=== PATIENT | male | born 1965 | race Caucasian/White ===

== ENCOUNTER 2017-08-11 07:59 | Day surgery (SDC) | payer OTHER ==
--- NOTE | 2017-08-10 11:51 | History and Physical ---
History & Physical Date Aug 10, 2017. Chief Complaint left knee pain History of Present Illness The patient is a 51 year old male with complaints of left knee pain that was treated conservatively with PT, bracing, corticosteroid injections, and viscosupplement injections but failed conservative tx. He had an MRI that noted a medial meniscal tear. He is now being set up for surgical tx. Past Medical/Surgical History Medical Problems: (1) Asthma, Unspecified (2) Benign hypertension (3) Chest pain (4) Diab Sonya Wo Compl, Type Ii Or Unspec Type, Not Uncntrld Allergies Coded Allergies: Dust (Verified Allergy, Mild, ASTHMA TYPE REACTION, 09/05/15) Shellfish (Verified Allergy, Mild, UNK, 09/05/15) Home Medications Scheduled Aspirin (Aspirin EC Low Dose), 81 MG PO DAILY Cyanocobalamin (Cyanocobalamin), 1 DOSE INJ MONTHLY Fluticasone Prop/Salmeterol (Advair Diskus 250/50 60 Dose), 1 PUFF INH BID Lisinopril (Zestril), 5 MG PO DAILY Multivitamin (Multivitamin), 1 TAB PO DAILY Scheduled PRN Fluticasone Propionate (Inhala (Flovent Diskus), 1 PUFFS INH BID PRN for Wheezing Physical Examination Skin: warm/dry, no rash Eyes: normal inspection ENT: normal ENT inspection Head: normocephalic, atraumatic Neck: supple, no adenopathy, trachea midline Respiratory/Chest: lungs clear, normal breath sounds, no respiratory distress Cardiovascular: regular rate, rhythm, no murmur Abdomen / GI: normal bowel sounds, non tender Extremities: + pertinent finding (left knee: tender at the medial and lateral joint spaces, + effusion, painful PROM, + Hu's, Decrease ROM and strength secondary to pain.) Neurologic/Psych: no motor/sensory deficits, alert, oriented x 3 Diagnosis left knee medial meniscus tear left knee DJD Plan of Treatment Recommend a left knee scope with partial medial meniscectomy. All potential risks, benefits, complications, alternatives, and rehab have been discussed with the patient and he wishes to proceed. He will be scheduled for 08.11.17.
[2017-08-10 12:18] VITALS: BMI 38.0
--- NOTE | 2017-08-10 12:44 | PAT Medication Instructions ---
Service Date Aug 10, 2017. Current Home Medication List Albuterol Hfa (Ventolin Hfa), 2-4 PUFFS INH Q6H PRN for Shortness of Breath Calcium/Vitamin D (Os-Sanket 500 Plus D), 1 TAB PO QAM Cyanocobalamin (Cyanocobalamin), 1 DOSE INJ MONTHLY Ergocalciferol (Vitamin D 94856 Unit), 50,000 UNIT PO MONDAY Fluticasone Prop/Salmeterol (Advair Diskus 250/50 60 Dose), 1 PUFF INH BID Fluticasone Propionate (Nasal) (Flonase Allergy Relief), 1 SPRAY NA DAILY PRN for Seasonal Allergies Lisinopril (Prinivil), 10 MG PO QPM Oxycodone/Acetaminophen 5MG/325MG (Percocet 5MG/325MG), 1-2 TABLETS PO Q4H PRN for Pain Pediatric Multiple Vitamins W/ (Flintstones Plus Iron), 2 TAB PO QAM Medication Instructions For Your Scheduled Surgery - Hold the following medications the morning of surgery: Calcium/Vitamin D (Os-Sanket 500 Plus D), 1 TAB PO QAM Pediatric Multiple Vitamins W/ (Flintstones Plus Iron), 2 TAB PO QAM - Take the following medications the morning of surgery with a sip of water OTHERWISE NOTHING TO EAT OR DRINK AFTER MIDNIGHT: Fluticasone Prop/Salmeterol (Advair Diskus 250/50 60 Dose), 1 PUFF INH BID Albuterol Hfa (Ventolin Hfa), 2-4 PUFFS INH Q6H PRN for Shortness of Breath ( use if needed; BRING TO HOSPITAL) Fluticasone Propionate (Nasal) (Flonase Allergy Relief), 1 SPRAY NA DAILY PRN for Seasonal Allergies Oxycodone/Acetaminophen 5MG/325MG (Percocet 5MG/325MG), 1-2 TABLETS PO Q4H PRN for Pain (may take if needed up to 4 hours prior to surgery) - Take the following medications as scheduled the night before surgery: Fluticasone Prop/Salmeterol (Advair Diskus 250/50 60 Dose), 1 PUFF INH BID Albuterol Hfa (Ventolin Hfa), 2-4 PUFFS INH Q6H PRN for Shortness of Breath Fluticasone Propionate (Nasal) (Flonase Allergy Relief), 1 SPRAY NA DAILY PRN for Seasonal Allergies Oxycodone/Acetaminophen 5MG/325MG (Percocet 5MG/325MG), 1-2 TABLETS PO Q4H PRN for Pain - Do Not take the following medications the night before surgery: Lisinopril (Prinivil), 10 MG PO QPM If you have any questions please call us at [phone] or [phone] or [phone]
[2017-08-10 13:22] LABS: BASO % 0.6 %; BASO ABS # 0.03 K/uL (0-0.2); EOS % 2.1 %; EOS ABS # 0.11 K/uL (0-0.5); HEMATOCRIT 41.3 % (42-52); HEMOGLOBIN 13.7 g/dL (14.0-18.0); IG# 0.01 K/uL (0.00-0.02); LYMPH % 38.3 %; LYMPH ABS # 2.04 K/uL (1.2-3.4); MEAN CELL VOLUME 97.6 fL (80-100); MEAN CORPUSCULAR HEMOGLOBIN 32.4 pg (25-34); MEAN CORPUSCULAR HGB CONC 33.2 g/dl (32-36); MEAN PLATELET VOLUME 9.7 fL (7.4-10.4); MONO ABS # 0.53 K/uL (0.11-0.59); NEUT % 48.8 %; PLATELET COUNT 265 K/uL (130-400); RED CELL DISTRIBUTION WIDTH CV 13.5 % (11.5-14.5); RED CELL DISTRIBUTION WIDTH SD 48.1 fL (36.4-46.3); WHITE BLOOD COUNT 5.32 K/uL (4.8-10.8)
--- NOTE | 2017-08-10 13:25 | DIAGNOSTIC IMAGING REPORT ---
TWO VIEW CHEST CLINICAL HISTORY: Preoperative examination. FINDINGS: PA and lateral chest radiographs are compared to study dated 07/30/2016 and correlated with chest CT dated 04/19/2014. The cardiomediastinal silhouette is unremarkable. Chronic interstitial thickening is unchanged from previous. The lungs and pleural spaces are clear. There is no pneumothorax. The bony thorax appears intact. Degenerative change is seen throughout the thoracic spine. IMPRESSION: No active disease in the chest. Electronically signed by: Fermin Schroeder M.D. 08/10/2017 1:24 PM Dictated Date/Time: 08/10/2017 1:23 PM
[2017-08-10 13:29] LABS: PTT PATIENT 24.7 SECONDS (21.0-31.0)
[2017-08-10 15:21] LABS: CALCIUM 9.3 mg/dl (8.5-10.1); CREATININE 0.94 mg/dl (0.60-1.40); POTASSIUM 4.5 mmol/L (3.5-5.1)
--- NOTE | 2017-08-10 18:48 | HISTORY & PHYSICAL EXAMINATION ---
DATE OF ADMISSION: 08/11/2017 HISTORY OF PRESENT ILLNESS: This is a 51-year-old gentleman seen regarding continued left knee pain. He had pain on the left side, which occurred constantly, which is worsening. He attempted and failed conservative management including home exercises, physical therapy, shoewear modification, use of an assistive device and a brace. His knee pain is rated a 7/10. He takes [place] for pain and an MRI demonstrates medial meniscus tear as well as a synovial cyst in the popliteal fossa. The patient was then scheduled for surgery as indicated. PAST MEDICAL HISTORY: Hypertension, reactive airway disease, and mild COPD. PAST SURGICAL HISTORY: Right knee arthroscopy. ALLERGIES: No known drug allergies. MEDICATIONS: Advair Diskus 1 puff 2 times a day, lisinopril 10 mg tablet p.o. every other day, B12, iron, Coenzyme Q10, promethazine 25 mg 1 q. 6 p.r.n. nausea. SOCIAL HISTORY: Denies alcohol or drug use. He uses smokeless tobacco. He is . 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 PHYSICAL EXAMINATION: Vital signs stable, afebrile. GENERAL: This is a 51-year-old gentleman who is alert and oriented x3 in no acute distress. HEENT: Normocephalic, atraumatic. EOMI, PERRLA. Oral mucosa is moist. Trachea is midline. No JVD. NEUROLOGIC: A&O x3. Speech clear. Affect appears appropriate. Cranial nerves II-XII grossly intact. HEART: Regular rate and rhythm. LUNGS: Clear to auscultation bilaterally. ABDOMEN: Soft, nontender, nondistended. No guarding, rebound or rigidity. GENITAL AND RECTAL: Deferred. BREASTS: Deferred. LOWER EXTREMITIES: Examination of the left knee demonstrates skin warm, dry and intact. Cap refill less than 2 seconds. Dorsalis pedis and posterior tibial pulses 2/4. Distal neurovascular status is intact. He has tenderness to palpation over the medial joint line. He has a positive Hu test medially with a click and pain. Negative anterior drawer test. Negative posterior drawer test. Negative varus and valgus stress testing. IMAGING DATA: Radiographs and MRI reviewed, demonstrating the above-noted findings. IMPRESSION: 1. Left knee medial meniscus tear. 2. Popliteal cyst, left knee. RECOMMENDATIONS: The patient will be scheduled for a left knee arthroscopy with partial medial meniscectomy and aspiration of Goa cyst with chondroplasty, medial femoral condyle. N.p.o. after midnight. Consent on chart. Follow up postop 2 weeks in clinic, outpatient procedure. CLAUDETTE
[~2017-08-11] VITALS: Ht 182.9 cm; Wt 128.4 kg
[~2017-08-11 07:59] MED LIST: ADVIN25/60 INH; ATROPINE SULFATE 0.1 MG/ML 5ML SYR IV PRN; CALC500C70 PO; CEFAZOLIN 3000MG IV PUSH 15 ML IV SCH; CYNI1000 INJ; ERGO500037 PO; EpHEDrine SULFATE INJ 50 MG/ML AMP IV PRN; FENTANYL CITRATE INJ 50 MCG/1 ML 2 ML VIAL IV PRN; FLUT0.15; HYDROmorphone INJ 1 MG/ML SYR IV PRN; LACTATED RINGER'S 1000ML 1,000 ML IV SCH; LISI10TA PO; ONDANSETRON INJ 2 MG/ML 2 ML VIAL IV PRN; OXYC-57 PO; PEDICHW44 PO; VNTHFA/IN INH
[2017-08-11] MEDS ORDERED: LIDOCAINE HCL 2% 2 ML VIAL (20MG/ML) ONE (08:39)
[2017-08-11] MEDS ORDERED: MIDAZOLAM HCL 1 MG/ML 2ML VIAL ONE ×2 (08:39→08:43)
[2017-08-11] MEDS ORDERED: DEXAMETHASONE SOD INJ 4 MG/ML VIAL ONE (08:39)
[2017-08-11] MEDS ORDERED: PROPOFOL IV EMULSION 10 MG/ML 20 ML VIAL IV ONE (08:39)
[2017-08-11] MEDS ORDERED: ONDANSETRON INJ 2 MG/ML 2 ML VIAL ONE ×2 (08:39→11:40)
[2017-08-11] MEDS ORDERED: FENTANYL CITRATE INJ 50 MCG/1 ML 2 ML VIAL ONE ×4 (08:39→12:26)
[2017-08-11 08:46] VITALS: BP 124/92; PULSE 78; TEMP 36.5; O2SAT 97; Ht 182.9 cm; Wt 128.4 kg
--- NOTE | 2017-08-11 10:40 | History & Physical Bridge Note ---
H&P Re-Evaluation Bridge Note: I have examined the patient, reviewed the History & Physical and in the interval since the performance of the History & Physical I have noted the following changes of clinical significance: No changes noted
[2017-08-11] MEDS ORDERED: EpINEphrine HCL INJ 1 MG/ML 1ML SYRINGE ONE ×2 (10:53→12:04)
[2017-08-11] MEDS ORDERED: BUPIVACAINE/EPINEPHRINE 0.5% MPF 1:200,000 30 ML VIAL ONE (10:56)
[2017-08-11] MEDS ORDERED: OXYC-57 PO (12:37)
[2017-08-11] MEDS ORDERED: ASPI-320 PO (12:37)
[2017-08-11] MEDS ORDERED: PROM25TA9 PO (12:37)
--- NOTE | 2017-08-11 12:38 | Discharge Instructions ---
Discharge Instructions Date of Service Aug 11, 2017. Admission Reason for Admission: Left Knee Other Medial Meniscus Tear, Current Inju Discharge Discharge Diagnosis / Problem: left knee medial meniscus tear Discharge Goals Goal(s): Decrease discomfort, Improve function Activity Recommendations Activity Limitations: per Instructions/Follow-up section Weightbearing Status: Left weightbearing (as tolerated) . Instructions / Follow-Up Instructions / Follow-Up ACTIVITY RECOMMENDATIONS: * You may walk on the leg with or without crutches as comfort permits. * Bending of the knee should start at once. * Do not shower for 48 hours following surgery. SPECIAL CARE INSTRUCTIONS: * You may cleanse the skin adjacent to the small wounds with soap and water at the time of the first dressing change. * The application of an ice bag to the front and sides of the knee will decrease swelling and discomfort for the first 48 hours. * The small incisions may be sore and develop bruising. This bruising does not require any special care. SPECIAL PRECAUTIONS: * If you experience unusual pain unrelieved by prescriptions, temperature elevation (100 degrees F. or above) or progressive swelling or bleeding, you should contact our office at for further evaluation. * You may have been prescribed pain medication. If you experience nausea and/or fine skin rash, discontinue this medication and contact our office at for an alternate medication. DRESSING: * Dressing should be comfortable and absorb any leakage of fluid and/or blood. * The dressing may become moist or bloodstained. * Dressing may be removed 3 days after surgery and bandaids placed over the small surgical incisions. If can be removed sooner if it becomes very soiled or loose. * Bandaids may be used over next several days as needed and can be discontinued when there is not further drainage from the wounds. FOLLOW UP VISIT: If appointment is not already scheduled: Please call [facility] to make a follow-up appointment for 2 weeks after your surgery at . Current Hospital Diet Patient's current hospital diet: Discharge Diet Recommended Diet: Regular Diet Procedures Procedures Performed: Left Knee: Arthroscopy with Parital Medial Menisectomy, Partial Lateral Meniscectomy, Aspiration of Gao's Cyst, Chondroplasty Medial Femoral Condyle, Abrasion Chondroplasty of Femoral Trochlea, Synovectomy Pending Studies Studies pending at discharge: no Medical Emergencies . Who to Call and When: Medical Emergencies: If at any time you feel your situation is an emergency, please call 911 immediately. . Non-Emergent Contact Non-Emergency issues call your: Surgeon Call Non-Emergent contact if: temperature is above 101, your pain is not controlled, your pain is worsening, wound has increased drainage, wound has increased redness, wound has increased pain . "Provider Documentation" section prepared by Jacob Benitez. . VTE Core Measure Inpt VTE Proph given/why not?: Antonio Ho
--- NOTE | 2017-08-11 12:38 | [facility] Post Operative Brief Note ---
Immediate Operative Summary Operative Date Aug 11, 2017. 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 Karthik Berg Career And Guidance Counselor Surgeon(s) none Estimated Blood Loss 2 ml Findings See Dict Specimens none per surgeon Drains None Anesthesia GLMA w/ local Complication(s) None Disposition Recovery Room / PACU
[2017-08-11] MEDS ORDERED: HYDROmorphone INJ 1 MG/ML SYR ONE ×2 (12:44→12:54)
[2017-08-11] MEDS ORDERED: OXYCODONE/ACETAMINOPHEN 5-325 TAB PO PRN (12:45)
--- NOTE | 2017-08-11 13:27 | Anesthesiology Progress Note ---
Anesthesia Post Op Note Date & Time Aug 11, 2017 at 13:26 Vital Signs Pain Intensity: 4 Vital Signs Past 12 Hours Date Time Temp Pulse Resp B/P (MAP) Pulse Ox O2 Delivery O2 Flow Rate FiO2 08/11/17 13:23 37.7 08/11/17 13:21 121/67 08/11/17 13:20 73 16 08/11/17 13:20 74 16 98 08/11/17 13:16 119/68 08/11/17 13:15 76 16 08/11/17 13:15 77 16 92 08/11/17 13:11 117/66 08/11/17 13:10 81 17 95 08/11/17 13:10 81 17 08/11/17 13:06 118/74 08/11/17 13:05 76 16 96 08/11/17 13:05 76 16 08/11/17 13:01 130/70 08/11/17 13:00 77 16 98 08/11/17 13:00 77 16 08/11/17 12:56 134/73 08/11/17 12:55 79 18 08/11/17 12:55 80 18 99 08/11/17 12:51 134/76 08/11/17 12:50 75 16 08/11/17 12:50 74 16 100 08/11/17 12:46 147/82 08/11/17 12:45 81 12 100 08/11/17 12:45 82 12 08/11/17 12:41 129/86 08/11/17 12:40 78 14 100 08/11/17 12:40 77 14 08/11/17 12:35 88 17 142/63 99 08/11/17 12:35 36.3 77 18 142/63 100 Oxymask 10 08/11/17 12:35 88 17 08/11/17 08:46 36.5 78 20 124/92 (103) 97 Room Air Notes Mental Status: alert / awake / arousable, participated in evaluation Pt Amnestic to Procedure: Yes Nausea / Vomiting: adequately controlled Pain: adequately controlled Airway Patency, RR, SpO2: stable & adequate BP & HR: stable & adequate Hydration State: stable & adequate Anesthetic Complications: no major complications apparent
[2017-08-11 13:35] VITALS: BP 142/66; PULSE 71; TEMP 36.9; O2SAT 98
[2017-08-11 14:10] VITALS: BP 150/78; PULSE 78; TEMP 36.9; O2SAT 98
--- NOTE | 2017-08-11 14:15 | OPERATIVE REPORT ---
DATE OF OPERATION: 08/11/2017 PREOPERATIVE DIAGNOSES: 1. Left knee medial meniscus tear. 2. Chondromalacia of the medial femoral condyle. 3. Gao's cyst. POSTOPERATIVE DIAGNOSIS: 1. Left knee medial meniscus tear. 2. Lateral meniscus tear. 3. Chondromalacia of the femoral condyle, grade 2-3. 4. Chondromalacia of the patella, grade 1-2. 5. Chondromalacia medial femoral condyle, grade 2-3. 6. Gao's cyst. 7. Synovitis. PROCEDURES: 1. Left knee arthroscopy with partial medial meniscectomy. 2. Partial lateral meniscectomy. 3. Abrasion chondroplasty of the femoral trochlea to bleeding bone. 4. Chondroplasty of the medial femoral condyle. 5. Synovectomy. 6. Aspiration of Gao's cyst. SURGEON: Dr. Berg. WELDER REPAIR: None. ANESTHESIA: General LMA with local. SPECIMENS: None. DRAINS: None. COMPLICATIONS: None. BLOOD LOSS: 2 mL. 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 He had slight twisting of the knee and he had immediate pain. This was ongoing for several months. Attempted conservative management and failed. He had tried physician directed home exercises, anti-inflammatories, rest, use of an assistive device, use of a knee brace and had continued pain with limited ability to ambulate. He had an MRI which demonstrated a complex tear of the medial meniscus as well as chondromalacia of the medial femoral condyle and a significant sized Gao's cyst. The patient was then scheduled for surgery as indicated. All potential risks, benefits, complications, alternatives, rehab, potential for incomplete relief of symptoms, need for further surgery, DVT, PE, , persistent pain, swelling, scarring, weakness, neurovascular injury, wound complications was discussed with the patient. The patient decided to proceed with the procedure as indicated. OPERATION AND FINDINGS: PROCEDURE: The patient was taken to the operative suite, placed supine on the operating room table. After review of consent and identification of proper operative site, the patient was anesthetized, LMA was placed. Tourniquet was placed high on the left thigh over cast padding. Left lower extremity was then placed in a surgical supervisor, right leg was placed in a well leg schaffer. Next, the left lower extremity was then sterilely prepped and draped in usual fashion, elevated and exsanguinated with an Esmarch bandage. Tourniquet was inflated to 350 mmHg. Next, using an 18 gauge spinal needle and a 60 mL syringe the Gao's cyst was then pierced and aspirated. In the popliteal fossa the left knee approximately 8-10 mL of synovial straw colored fluid was then aspirated decompressing the Gao's cyst. Next, an 11 blade scalpel was used to make an incision in the anterior lateral aspect of the knee followed by placement of a blunt trocar and sleeve camera and inflow. Under direct visualization superior medial portal was established using an 18 gauge spinal needle and a blunt trocar and stopcock. Next, sequential diagnostic arthroscopy commenced in the suprapatellar pouch noting synovitis. Next examination of the patellofemoral joint noted grade 2-3 significant chondromalacia with flap tearing of the articular cartilage of the femoral trochlea. There is some counter face chondromalacia noted grade 1-2 of the patella. Patellar largely tracked centrally and slightly laterally. Next, the medial gutter was inspected. No loose bodies. Moderate synovitis. Next, the medial joint space was inspected and there was noted to be a complex tear of the posterior horn and body of the medial meniscus. Also noted to be significant grade 2-3 chondromalacia medial femoral condyle. Next, medial portal was established using an 18 gauge spinal needle and a stab incision for 11 blade scalpel followed by placement of basket biter, which was then used to resect the damaged portion of the medial meniscus. After this was resected back to stable tissue the 4.5 mm sucker shaver was then used to smooth and contour the remaining meniscus and remove any particulate debris. Next, an abrasion chondroplasty to bleeding bone was then performed of the femoral trochlea. Once this was completed, a chondroplasty was also performed of the medial femoral condyle, was noted to have chondromalacia grade 1-2. Next, synovectomy was then performed with a 4.5 mm sucker shaver in the suprapatellar pouch, medial and lateral gutters and in the medial and lateral joint spaces. Next, the ACL and PCL were inspected and blunt-tipped probe was inserted. There was noted to be no significant laxity of the ACL or PCL. Next, the lateral joint space was inspected and noted to be a white white tear of the lateral meniscus and a 4.5 mm sucker shaver was then used to debride the damaged portion of the meniscus. Once this was completed, all particulate debris was then flushed from the joint. A final survey was performed of the joint including lateral gutter, medial gutter, medial and lateral joint spaces and the suprapatellar pouch. Final synovectomy was then completed in the suprapatellar pouch. Next, the joint was then flushed once again with lavage solution and all portals then removed. Excess fluid was expressed from the joint, followed by closure of the portal sites using interrupted 4-0 nylon sutures. The joint was injected with approximately 30 mL of 0.25% Marcaine with epinephrine followed by application of a sterile compressive dressing and Yvan wrap. The tourniquet was released, the patient was awakened and taken to recovery in stable condition. I attest to the content of the Intraoperative Record and any orders documented therein. Any exception s are noted below.
== END 2017-08-11 14:20 | disposition home or self-care (01) ==
LOC: C.ACU 07:59
PROVIDERS: ATTEND Orthopaedic Surgery Sports Medicine
DX: M23.222 Derangement of posterior horn of medial meniscus due to old tear or injury, left knee (principal); M71.22 Synovial cyst of popliteal space [Baker], left knee; M94.262 Chondromalacia, left knee; J44.9 Chronic obstructive pulmonary disease, unspecified; G47.33 Obstructive sleep apnea (adult) (pediatric); I10 Essential (primary) hypertension; K21.9 Gastro-esophageal reflux disease without esophagitis; E11.9 Type 2 diabetes mellitus without complications; E66.9 Obesity, unspecified; Z98.84 Bariatric surgery status; Z79.82 Long term (current) use of aspirin

== ENCOUNTER 2018-04-05 18:01 | Emergency (ER) | payer OTHER ==
[~2018-04-05] VITALS: Ht 182.9 cm; Wt 132.8 kg
[~2018-04-05 18:01] MED LIST changes: +ASPI-320 PO; -ATROPINE SULFATE 0.1 MG/ML 5ML SYR IV PRN; -CEFAZOLIN 3000MG IV PUSH 15 ML IV SCH; -EpHEDrine SULFATE INJ 50 MG/ML AMP IV PRN; -FENTANYL CITRATE INJ 50 MCG/1 ML 2 ML VIAL IV PRN; -HYDROmorphone INJ 1 MG/ML SYR IV PRN; -LACTATED RINGER'S 1000ML 1,000 ML IV SCH; -ONDANSETRON INJ 2 MG/ML 2 ML VIAL IV PRN; -OXYC-57 PO
[2018-04-05 18:09] VITALS: TEMP 36.8; Ht 182.9 cm; Wt 132.8 kg
--- NOTE | 2018-04-05 19:42 | EMERGENCY ROOM VISIT NOTE ---
ED Visit Note First contact with patient: 19:19 CHIEF COMPLAINT: Left knee pain HISTORY OF PRESENT ILLNESS: This 52-year-old male patient presents to the emergency department by private vehicle with complaint of left knee pain for the past 1-2 months. Patient reports that he had an MCL repair surgery to this knee done by Dr. Berg in August of this year. He thinks that he may have twisted the knee while at work, and has been having persistent pain in the knee. He states the pain is constant, throbbing and aching, worse with movement and walking on the knee, better with rest, currently rates as 9/10. He has been taking Advil, Aleve, Tylenol and also admits to taking some of his family members' Vicodin tablets for the pain, he states "nothing touches the pain." He reports that he is scheduled to see his primary care provider tomorrow for the knee and is working on getting a referral to see Dr. Sandoval to evaluate his knee, he states he does not wish to go back to see Dr. Berg. He states "I just cannot take the pain anymore, that is why I am here." The patient denies any other injuries besides their knee. The patient reports some swelling, but denies any bruising. There is pain along the medial aspect of the knee. The patient states they are able to walk on it. No numbness or tingling. No previous injuries to this knee. No ankle, foot or hip pain. REVIEW OF SYSTEMS: A 6 system review of systems was completed with positives and pertinent negatives listed in the HPI. ALLERGIES: Reviewed in chart, see below. MEDICATIONS: Reviewed in chart, see below. PMH: Reviewed in chart, see problem list below. SOCIAL HISTORY: Lives at home. Denies tobacco use. PHYSICAL EXAM: Vital Signs: Reviewed Nurse's notes, vital signs stable. GENERAL : Pleasant and cooperative, no acute distress, but appears in pain, well- developed, well-nourished. MENTAL STATUS: Alert, oriented to person place and time, and cooperative. MUSCULOSKELETAL: The left knee is mildly swollen. There is no ecchymosis. There is no significant joint effusion present. The patient is tender along the medial aspect of the knee. There is medial joint line tenderness. The patella does not subluxate. Range of motion is normal. Strength of the quads and hamstrings is 5/5. Tamiko's and Anterior Drawer tests are normal. There is no instability with varus and valgus stressing. The foot and toes are warm and well-perfused. Dorsalis pedis pulse 2+. Sensation to pain and light touch is intact. Capillary refill less than 2 seconds. IMAGING: L KNEE 2 VIEWS ROUTINE CLINICAL HISTORY: Left knee pain COMPARISON: None. DISCUSSION: No acute fractures or dislocations are visualized. There are minor degenerative changes. There is no radiographic evidence of a significant joint effusion. IMPRESSION: Minor degenerative change. No fractures identified. EMERGENCY DEPARTMENT COURSE: I examined the patient. Differential diagnosis includes contusion, ligamentous sprain/strain, knee effusion, fracture, subluxation/dislocation, chronic knee pain, among others. The patient took Aleve and Tylenol 2 hours prior to arrival, I explained that I was unable to give him additional pain medication at this time. X-rays of the left knee were reviewed by myself and read by radiology and reveal no acute fracture or dislocation. The patient was placed in a knee immobilizer under my direction and the position was satisfactory. The patient was instructed on the use of crutches. Patient was educated regarding continued pain management at home, orthopedic follow-up, and return precautions, he verbalized understanding. The patient was discharged home in good condition. Problem List Medical Problems: (1) Asthma, Unspecified Status: Chronic (2) Benign hypertension Status: Chronic (3) Diab Sonya Wo Compl, Type Ii Or Unspec Type, Not Uncntrld Status: Chronic Current/Historical Medications Scheduled Aspirin (Aspirin EC Low Dose), 91 MG PO DAILY Calcium/Vitamin D (Os-Sanket 500 Plus D), 1 TAB PO QAM Cyanocobalamin (Cyanocobalamin), 1 DOSE INJ MONTHLY Ergocalciferol (Vitamin D 29354 Unit), 50,000 UNIT PO MONDAY Fluticasone Prop/Salmeterol (Advair Diskus 250/50 60 Dose), 1 PUFF INH BID Lisinopril (Prinivil), 10 MG PO QPM Pediatric Multiple Vitamins W/ (Flintstones Plus Iron), 2 TAB PO QAM Scheduled PRN Albuterol Hfa (Ventolin Hfa), 2-4 PUFFS INH Q6H PRN for Shortness of Breath Fluticasone Propionate (Nasal) (Flonase Allergy Relief), 1 SPRAY NA DAILY PRN for Seasonal Allergies Allergies Coded Allergies: Dust (Verified Allergy, Mild, ASTHMA TYPE REACTION, 08/10/17) Shellfish (Verified Allergy, Mild, UNK, 08/10/17) CAN USE IODINE ON SKIN Vital Signs Date Time Temp Pulse Resp B/P (MAP) Pulse Ox O2 Delivery O2 Flow Rate FiO2 04/05/18 20:45 91 18 118/72 94 04/05/18 18:09 36.8 93 18 107/75 93 Room Air Departure Information Impression Primary Impression: Chronic pain of left knee Dispostion Home / Self-Care Condition GOOD Referrals Ama Perdomo M.D. (PCP) Karthik Berg D.O. Martin, James S., M.D. Patient Instructions ED Sprain Knee, ED Sprain Knee Collateral Ligaments, [facility] Additional Instructions You have been evaluated and treated in the emergency department today for your left knee pain. X-rays today do not show any fracture or dislocation. Ice and elevate knee for swelling and pain. Wear knee immobilizer when up and about. Use crutches - minimal weight on foot. Ibuprofen 600 mg and Tylenol 650 mg every 6 hrs for pain, for best results alternate between ibuprofen and Tylenol every 3 hours. Follow-up with your orthopedic surgeon for further evaluation and treatment - call for appointment. Keep your scheduled appointment with your primary care provider tomorrow.
--- NOTE | 2018-04-05 19:50 | DIAGNOSTIC IMAGING REPORT ---
L KNEE 2 VIEWS ROUTINE CLINICAL HISTORY: Left knee pain COMPARISON: None. DISCUSSION: No acute fractures or dislocations are visualized. There are minor degenerative changes. There is no radiographic evidence of a significant joint effusion. IMPRESSION: Minor degenerative change. No fractures identified. Electronically signed by: Williams Pina M.D. 04/05/2018 7:48 PM Dictated Date/Time: 04/05/2018 7:48 PM
[2018-04-05 20:45] VITALS: BP 118/72; PULSE 91; O2SAT 94
== END 2018-04-05 20:45 | disposition home or self-care (01) ==
LOC: C.EDB 18:03 → C.EDD 20:45
DX: M25.562 Pain in left knee (principal); G89.29 Other chronic pain; J45.909 Unspecified asthma, uncomplicated; I10 Essential (primary) hypertension; E11.9 Type 2 diabetes mellitus without complications; Z79.82 Long term (current) use of aspirin; Z91.013 Allergy to seafood

== ENCOUNTER 2023-10-31 06:41 | Observation (INO) ==
--- NOTE | 2023-09-21 13:10 | PAT Medication Instructions ---
Medication Instructions Date of Service September 21, 2023 Home Medications Medication Instructions Recorded hydrocodone 5 mg-acetaminophen 325 1 - 2 tab PO Q6H PRN pain #18 tabs 09/09/19 mg tablet ondansetron 4 mg disintegrating 4 mg PO Q6H PRN nausea and 09/09/19 tablet vomiting #20 tabs tamsulosin 0.4 mg capsule (Flomax) 0.4 mg PO DAILY #14 caps 09/09/19 lisinopril 10 mg tablet 10 mg PO QPM albuterol sulfate 90 mcg/actuation aerosol inhaler (Ventolin HFA) 2 puff inhalation Q6H PRN fluticasone propionate 220 mcg/actuation HFA aerosol inhaler (Flovent HFA) 2 puff inhalation BID hydrocodone 5 mg-acetaminophen 325 mg tablet 1 - 2 tab PO Q6H PRN ipratropium 0.5 mg-albuterol 3 mg (2.5 mg base)/3 mL nebulization soln 2 ml inhalation Q6H PRN ondansetron 4 mg disintegrating tablet 4 mg PO Q6H PRN pediatric multivit no.79-ferrous fumarate 18 mg iron chewable tablet (Flintstones with Iron) 1 tab PO DAILY tamsulosin 0.4 mg capsule (Flomax) 0.4 mg PO DAILY trazodone 100 mg tablet 100 mg PO HS PRN Continue as directed tamsulosin 0.4 mg capsule (Flomax) 0.4 mg PO DAILY DO NOT take the morning of surgery pediatric multivit no.79-ferrous fumarate 18 mg iron chewable tablet (Flintstones with Iron) 1 tab PO DAILY Take morning of surgery With a small sip of water, OTHERWISE NOTHING TO EAT OR DRINK AFTER MIDNIGHT: albuterol sulfate 90 mcg/actuation aerosol inhaler (Ventolin HFA) 2 puff inhalation Q6H PRN(use if needed; please bring with you to hospital day of surgery if possible) fluticasone propionate 220 mcg/actuation HFA aerosol inhaler (Flovent HFA) 2 puff inhalation BID hydrocodone 5 mg-acetaminophen 325 mg tablet 1 - 2 tab PO Q6H PRN(if needed) ipratropium 0.5 mg-albuterol 3 mg (2.5 mg base)/3 mL nebulization soln 2 ml inhalation Q6H PRN(if needed) ondansetron 4 mg disintegrating tablet 4 mg PO Q6H PRN(if needed) Take evening before surgery lisinopril 10 mg tablet 10 mg PO QPM albuterol sulfate 90 mcg/actuation aerosol inhaler (Ventolin HFA) 2 puff inhalation Q6H PRN(if needed) fluticasone propionate 220 mcg/actuation HFA aerosol inhaler (Flovent HFA) 2 puff inhalation BID hydrocodone 5 mg-acetaminophen 325 mg tablet 1 - 2 tab PO Q6H PRN(if needed) ipratropium 0.5 mg-albuterol 3 mg (2.5 mg base)/3 mL nebulization soln 2 ml inhalation Q6H PRN(if needed) ondansetron 4 mg disintegrating tablet 4 mg PO Q6H PRN(if needed) trazodone 100 mg tablet 100 mg PO HS PRN(if needed) Other Notes If you have any questions please call us at [phone] or [phone] or [phone] or [phone]
--- NOTE | 2023-10-11 10:59 | Anesthesiology Consultation ---
Date of Service October 11, 2023 Assessment & Plan (1) Encounter for pre-operative examination: - Infectious disease screening: Per assessment on 10/11/23: No known infectious disease contacts or current infectious disease symptoms. No noted recent Covid positive test result. - Outpatient joint assessment: Pt currently scheduled for inpatient pathway. If surgeon requests review for outpatient joint pathway, patient is an acceptable candidate for outpatient joint program from anesthesia standpoint pending surgeon's office assessment that patient is motivated, has good support and completes Same Day Joint Program preop requirements. Chart Review Chart Review: Acceptable Risk for Surgery and Patient seen in Pre Admission Testing Teaching & Discussion Pre-Anesthesia Teaching/Discussion Notes: Instructed NPO after midnight before surgery,except medications with 15 cc of water. Medication instructions provided according to the PAT guidelines. History Surgery Operation Date: 10/31/23 10:40 Proposed Procedures p Left Total Knee Arthroplasty - Samir Sandoval MD Height/Weight Height: 6 ft Weight: 138.3 kg Allergies Allergy/AdvReac Type Severity Reaction Status Date / Time Dust Allergy Mild "Asthma-type" Uncoded 10/09/23 12:25 reaction Medications Home Medications Medication Instructions Recorded Confirmed Last Taken albuterol sulfate 90 mcg/actuation 2 puff inhalation Q6H PRN Wheezing 09/09/19 10/04/23 Unknown aerosol inhaler (Ventolin HFA) ipratropium 0.5 mg-albuterol 3 mg 2 ml inhalation Q6H PRN Wheezing 09/09/19 10/04/23 Unknown (2.5 mg base)/3 mL nebulization soln pediatric multivit no.79-ferrous 1 tab PO QAM 09/09/19 10/04/23 Unknown fumarate 18 mg iron chewable tablet (Flintstones with Iron) fluticasone 500 mcg-salmeterol 50 1 ea inhalation BID 10/04/23 10/04/23 Unknown mcg/dose blistr powdr for inhalation losartan 25 mg tablet 25 mg PO QAM 10/04/23 10/04/23 Unknown Past Medical History Medical History Chronic anemia Baseline hgb 13s per chart review Chronic obstructive pulmonary disease Stable Enlarged thoracic aorta Stress echo 05/2021: Moderately enlarged proximal ascending thoracic aorta, 4.6 cm. Mildly enlarged aortic root, 4 cm. History of COVID-30 October 2022, resolved History of torn meniscus of left knee Hypertension Obesity Osteoarthritis Exercise / Class Metabolic Activity II 4-5 Yardwork/Stairs/Walk up hill Past Family History Family History Grandmother Family history of diabetes mellitus Past Surgical History Surgical History History of arthroscopy R/L knees Left knee scope 05/2018, [facility], LMA#5 History of colonoscopy History of Lennox-en-Y gastric bypass (2003) Hx of hernia repair Past Anesthesia History No Hx of Anesthesia Complications and No Family Hx of Anesthesia Complications History of PONV No Hx of PONV and No Hx of Motion Sickness Social History Smoking Status: Former smoker Do You Dip or Chew Tobacco: Yes (Chews 10 pouches per day - 7 oz per day - advised none DOS) Smoking End Date: Quit 8 years ago, hx 10 cigs/day Hx Alcohol Use: Yes Alcohol type: beer alcohol intake frequency: a few times a week Hx Substance Use: No substance use type: does not use Review of Systems Patient denies chest pain, shortness of breath, dyspnea on exertion, fever, chills, cough, wheezing, palpitations. Physical Exam Vital Signs BP 157/98 > pt monitors BP closely at home, states he will contact PCP if persistently elevated on home readings* P 79 TEMP 98.0 SP02 99%RA RESP 16 Physical Full cervical extension range of motion. Full TMJ range of motion. TMD 3 finger breaths Mallampati Score 3 Dentition: several missing sides/molars Lungs: clear throughout to auscultation Cardiac: regular rate and rhythm, no murmurs noted Spine: normal Carotid arteries: negative bruit Extremities: no LE edema Lab Results Anesthesia Preop Results Results Anesthesia Widget: WBC 5.83 K/ul (4.8-10.8) 10/11/23 Hgb 12.8 g/dl (14.0-18.0) L 10/11/23 Hct 40.4 % (42.0-52.0) L 10/11/23 Plt 296 K/uL (130-400) 10/11/23 Na 139 mmol/L (136-145) 10/11/23 K 4.9 mmol/L (3.5-5.1) 10/11/23 Cl 106 mmol/L (98-107) 10/11/23 CO2 28 mmol/L (21-32) 10/11/23 BUN 15 mg/dl (6-23) 10/11/23 Creat 0.90 mg/dl (0.6-1.4) 10/11/23 Glucose Level 120 mg/dl (70-99(Fasting)) H 10/11/23 PT 10.9 Seconds (9.0-12.0) 10/11/23 PTT 24 Seconds (21-31) 10/11/23 INR 1.0 (0.9-1.1) 10/11/23 Blood Type A Positive 10/11/23 Antibody Screen NEGATIVE 10/11/23 Testing Electrocardiogram Date: 10/11/23 Findings: + NSR @ (81) Chest X-Ray Date: 10/11/23 Findings: + NAD Stress Test Date: 06/10/21 Type: exercise The stress echo is negative for inducible ischemia. Stress EKG response showed no evidence of ischemia. Rare supraventricular and ventricular ectopic beats noted with stress EKG without sustained arrhythmias. 88% MPHR. Rest study: LVEF 55-59%. Mildly increased concentric LV wall thickness. Mildly enlarged aortic root, 4 cm. Moderately enlarged proximal ascending thoracic aorta, 4.6 cm. No significant valvular disease. LV wall motion is normal. Grade 1 diastolic dysfunction.
--- NOTE | 2023-10-27 13:20 | History & Physical Report ---
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 Is failed conservative measures. He would like to proceed with left knee replacement. Plan: When taken to the operating do a left total knee replacement. The risks Mente this procedure explained the patient clued but not limited to DVT PE infection neurological injury vascular bleeding palm pain limb range of motion this is fairly of symptoms incomplete relief of symptoms need for further surgery in the future. Patient understands and desires to proceed. Informed consent was obtained. As far as discharge plans he is planned to be discharged to home. He is going to go to outpatient local therapy. Will plan on DVT prophylaxis including thigh-high teds, SCDs, aspirin twice a day. History of Present Illness Chief Complaint: . Bilateral knee pain and discomfort. Left side greater than right. Primary Care Provider: Ama Perdomo MD . Patient is a 57-year-old male who presents for follow-up and definitive treatment of his knees at this time please get a long history of bilateral knee pain discomfort describes gotten worse over time to the left knee bothers him more than the right. Has had multiple surgeries in the past including 2 knee scopes in the left and 1 on the right. He had injections which have become less successful over time. He describes global pain. The more he is up and on his knees and what they hurt. He would like to proceed with left knee replacement. Allergies Allergy/AdvReac Type Severity Reaction Status Date / Time Dust Allergy Mild "Asthma-type" Uncoded 10/09/23 12:25 reaction Home Medications Medication Instructions Recorded Confirmed Type albuterol sulfate 90 mcg/actuation 2 puff inhalation Q6H PRN Wheezing 09/09/19 10/04/23 History aerosol inhaler (Ventolin HFA) ipratropium 0.5 mg-albuterol 3 mg 2 ml inhalation Q6H PRN Wheezing 09/09/19 10/04/23 History (2.5 mg base)/3 mL nebulization soln pediatric multivit no.79-ferrous 1 tab PO QAM 09/09/19 10/04/23 History fumarate 18 mg iron chewable tablet (Flintstones with Iron) fluticasone 500 mcg-salmeterol 50 1 ea inhalation BID 10/04/23 10/04/23 History mcg/dose blistr powdr for inhalation losartan 25 mg tablet 25 mg PO QAM 10/04/23 10/04/23 History Past Med/Surg History Medical History Chronic anemia Baseline hgb 13s per chart review Enlarged thoracic aorta Stress echo 05/2021: Moderately enlarged proximal ascending thoracic aorta, 4.6 cm. Mildly enlarged aortic root, 4 cm. Obesity History of torn meniscus of left knee History of COVID-30 October 2022, resolved Osteoarthritis Hypertension Chronic obstructive pulmonary disease Stable Surgical History History of colonoscopy Hx of hernia repair History of Lennox-en-Y gastric bypass (2003) History of arthroscopy R/L knees Left knee scope 05/2018, [facility], LMA#5 Family History Grandmother Family history of diabetes mellitus Social History Smoking Status: Former smoker Tobacco Type: Cigarettes and Smokeless Tobacco (Dip or Chew) Second Hand Exposure: No; Do You Dip or Chew Tobacco: Yes (Chews 10 pouches per day - 7 oz per day - advised none DOS); Hx Alcohol Use: Yes Alcohol type: beer Hx Substance Use: No Preferred Language: Moldovan Communication Ability: Effective Speed Reading Teacher Required: No Beliefs That Will Affect Care: None Current Living Situation: Spouse Feels Safe at Home: Yes Assistive Devices: Glasses Review of Systems All systems reviewed & are unremarkable except as noted in HPI & below. Physical Exam . Physical examination reveals pleasant middle-age male. Looks in pretty good health. Examination of the left knee reveal patient ambulates independently. Good varus alignment to his knee. He is tender with medial joint line. Small knee effusion. Range of motion 5-1 25. No instability. No particular pain with hip motion. Examination of the right knee reveals a similar varus deformity. Small knee effusion. Tender over the medial joint line. Range of motion 5-1 25. Constitutional WD/WN, vitals as above Neck trachea midline, no thyromegaly Respiratory normal respiratory effort, lungs clear to auscultation Cardiovascular RRR, no murmur, no edema Gastrointestinal (Abdomen) normal bowel sounds, soft, nontender, no hepatosplenomegaly Results & Data Results & Data Laboratory Results . Diagnostic Findings . X-rays of both knees reveal advanced bilateral knee DJD. She got complete loss of medial joint space in both knees. Is got osteophytes. The left side is a bit worse than the right. PG Care Time/CCT Total # of Minutes Spent Total Time Spent with Patient: Total time spent is greater than 50% in coordination of care (as documented) at patient's floor/unit and/or counseling patient: Coding Level of Care Code None Diagnoses Degenerative arthritis of knee, bilateral M17.0
[~2023-10-31 06:41] MED LIST changes: -ADVIN25/60 INH; -ASPI-320 PO; +BUPIVACAINE 0.5 % 5 MG/1 ML PF 10ML VIAL ONE; -CALC500C70 PO; -CYNI1000 INJ; -ERGO500037 PO; -FLUT0.15; +KETAMINE HCL 10MG/ML SYR ONE; -LISI10TA PO; -PEDICHW44 PO; +ROPIVACAINE 0.5% 5 MG/ML 30 ML VIAL ONE; -VNTHFA/IN INH
--- NOTE | 2023-10-31 06:51 | History & Physical Bridge Note ---
Date of Service October 31, 2023 History & Physical Bridge Note I have examined the patient, reviewed the History & Physical and in the interval since the performance of the History & Physical I have noted the following changes of clinical significance: no changes noted
[2023-10-31] MEDS: FAMOTIDINE 20 MG TAB PO SCH (07:12)
[2023-10-31] MEDS: Scopolamine 1 MG TDSY TD SCH (07:12)
[2023-10-31] MEDS: CeleBREX 200 MG CAP PO SCH (07:12)
[2023-10-31] MEDS: ACETAMINOPHEN 500 MG TAB PO SCH ×2 (07:12→14:14)
[2023-10-31] MEDS: METOCLOPRAMIDE HCL 10 MG TABLET PO SCH (07:12)
[2023-10-31] MEDS: dexAMETHasone**PF** 10 MG/ML VIAL IV SCH (07:12)
[2023-10-31] MEDS: LR 60ML/HR IV SCH (07:13)
[2023-10-31] MEDS: LR 500ML BOLUS, THEN 15ML/HR IV SCH (07:25)
[2023-10-31] MEDS ORDERED: fentaNYL citrate PF 100 MCG/2 ML VIAL ONE (07:46)
[2023-10-31] MEDS ORDERED: MIDAZOLAM HCL 1 MG/ML 2ML VIAL ONE (07:46)
[2023-10-31] MEDS ORDERED: ONDANSETRON INJ 2 MG/ML 2 ML VIAL ONE ×2 (07:49→09:38)
[2023-10-31] MEDS ORDERED: PROPOFOL IV EMULSION 10 MG/ML 100 ML VIAL IV ONE (07:49)
[2023-10-31] MEDS ORDERED: ATROPINE SULFATE 0.1 MG/ML 10ML SYR IV PRN (08:39)
[2023-10-31] MEDS ORDERED: fentaNYL citrate PF 100 MCG/2 ML VIAL IV PRN (08:39)
[2023-10-31] MEDS ORDERED: ePHEDrine sulfate 50 MG/ML AMP IV PRN (08:39)
[2023-10-31] MEDS ORDERED: ONDANSETRON INJ 2 MG/ML 2 ML VIAL IV PRN (08:39)
[2023-10-31] MEDS: ceFAZolin 3000MG 3,000 MG/72.5 ML BAG IV SCH (09:07)
[2023-10-31] MEDS ORDERED: DEXAMETHASONE SOD INJ 4 MG/ML VIAL ONE (09:38)
[2023-10-31] MEDS: ROPIV 0.5% 246mg, Ketorolac 30mg, EPINEPHrine 0.5mg in NSS INFIL SCH (09:48)
[2023-10-31] MEDS: ORTHO JOINT ANESTHETIC ONE (09:48)
[2023-10-31] MEDS: TRANEXAMIC ACID 1,000 MG **IV Intra-op IV SCH (10:00)
--- NOTE | 2023-10-31 11:01 | Operative Report ---
PG Post Operative Report Pre & Post Diagnosis Operation Date: 10/31/23 08:50 Pre-Op Diagnosis: Left Knee Degeneartive Joint Disease Post-Op Diagnosis: Left Knee Degeneartive Joint Disease I identified the patient and participated in the time-out.: Yes Procedure Operation Date: 10/31/23 08:50 Actual Procedures p Left Total Knee Arthroplasty(Left) - Samir Sandoval MD Surgeon Samir Sandoval MD Momd Teacher Jason Howard PA-C Estimated Blood Loss 50 Findings Consistent with Post-Op Diagnosis Operative findings reveal advanced left knee DJD. Had extensive grade 4 [id number] disease primarily involving the medial compartments. He had some spotty changes of patellofemoral compartment. Fairly minimal disease laterally. Varus deformity to his knee. Moderate-sized knee joint effusion. Specimens Left knee sent for pathology. Anesthesia Type Spinal MAC Complications none Disposition Accompanied Patient To Recovery: No Indications Patient is a 57-year-old fairly large gentleman has had a long history of bilateral knee pain discomfort describes gotten worse over time. Is a history of multiple knee arthroscopies 2 on the left 1 on the right. He failed conservative measures over time. X-rays show progressive knee arthritis. He elected proceed with total knee arthroplasty. Description of Procedure Operative implants consisted of: 1 Biomet Vanguard size 72.5 left Po stabilized femoral component. 2. Biomet size 79 tibial tray. 3. 10 mm post stabilized polyethylene insert. 4. 34 x 8 and half all poly patella. The patient was taken the operating, identified, placed on the operating table in supine position. All contact areas were appropriately padded. IV antibiotics tried by anesthesia team. A spinal anesthetic and adductor canal block had been provided in the holding area. Left thigh tourniquet was then placed. The left lower extremity was then prepped and draped in usual sterile fashion. The left leg was elevated and exsanguinated with use of an Esmarch and a turn was placed at 3 mmHg. An anterior approach the left knee was then performed to longitudinal incision centered over the patella. Sharp dissection was carried through subcutaneous tissue down the extensor mechanism. A medial parapatellar arthrotomy incision was made. Some subperiosteal dissection was carried out medially. The fat pad was resected from Neath patella tendon. Lateral patellofemoral ligament was released. Patella subluxated laterally and the knee was flexed. The osteophyte taken off distal femur per the ACL PCL then released on distal femur the tibia subluxated anteriorly. The external tibial alignment jig was then placed in the interface the tibia and adjusted 14 mm medially. Proximal tibial cut was made to move millimeter bone from most deficient aspect medial tibial plateau. Tibia was sized to a size 79. Attention drawn the femur. The distal femur stem with a sharp drop with intramedullary canal was suction. A left 6 degree valgus cutting guide was placed. Distal femoral cutting block was pinned in place. This femoral cut was made take an additional 3 mm of bone off distal femur. The femur was then sized to a size 72.5. The AP cutting block was pinned parallel to the epicondylar axis which was 5 degrees of external rotation. The anterior cut, anterior chamfer, posterior cut, posterior chamfer cuts were made. The box cutting guide was placed in just the box cut was made. The knee was flexed. The remnants of the medial and lateral menisci were excised. The osteophytes taken off the posterior aspect the femur. A trial femoral component was placed for the tibial tray was pinned in maximum external rotation and the drill and stem punch were used to create defect in proximal tibia for the tibial tray. Knee was then trialed and the 10 mm insert fit most appropriately. Attention drawn the patella. Patella was cleaned of all soft tissue. Patella thickness measured 28 mm in thickness was cut down to 15. Was sized to a size 34 patella. The locals were drilled for 34 patella. Lateral x-rays removed. Patella button was placed. Knee was taken through range of motion patella tracked nicely with no thumbs test. Attention drawn to place the permanent components. All trial components were removed. Bone plug was placed in the distal femur limit blood loss. A double batch Palacos G cement was mixed. A Biomet Vanguard size 72.5 left Po stabilized femoral component, size 79 tibial tray, a 10 mm post stabilized polyethylene insert, and a 34 x 8 and half all poly patella then cemented in place. The knee was brought out into full extension till cement hardened. Final cement check was then performed. The pericapsular tissues were injected with total 100 cc of orthopedic joint mix. The patient did receive 1 g tranexamic acid. The tourniquet was let down for final tourniquet time 57 minutes. Hemostasis assured use electrocautery. Extensor Meclomen closed with combination 1 PDS suture #1 Vicryl suture in a [id number] fashion. Extensor Meclomen checked found to be intact through subcutaneous tissue then closed with 2 Dexon suture in buried interrupted fashion skin was closed skin mary. Leg was then cleaned and dried and sterile dressing was Xeroform, 4 fours, sterile cast padding, Yvan bandage were applied. Patient then transferred to the recovery room in stable condition. The patient tolerated the procedure well and there were no complications. Jason Howard, my physician virtual assistant, was present for the entire procedure. His assistance was essential and required for appropriate patient positioning, prepping and draping, surgical exposure, performing the technical details of the operation, placement the implants, closure of the wound, and placement of the sterile bandage. I attest to the content of the Intraoperative Record and any orders documented therein. Any exceptions are noted below.
--- NOTE | 2023-10-31 11:36 | XRay Report ---
XR knee LT 1 or 2V routine CLINICAL HISTORY: Surgical Post Op TECHNIQUE: 2 views of the left knee were obtained. Comparison: Comparison is made to left knee radiographs 04/05/2018 FINDINGS: Patient is status post total knee arthroplasty with expected postsurgical changes including soft tiss ue swelling and subcutaneous emphysema. No periarticular lucency or hardware fracture is seen. IMPRESSION: Expected postoperative appearance status post placement of total knee arthroplasty. ACT 112: Negative or not required by law. Electronically signed by: Lucius Shaikh M.D. 10/31/2023 11:34 AM
[2023-10-31] MEDS ORDERED: NALOXONE HCL 0.4 MG/1 ML VIAL/CARP IV PRN (12:00)
[2023-10-31] MEDS ORDERED: TAMSULOSIN HCL 0.4 MG CAP PO PRN (12:00)
[2023-10-31] MEDS ORDERED: METOCLOPRAMIDE HCL INJ 5 MG/ML 2 ML VIAL IV PRN (12:00)
[2023-10-31] MEDS ORDERED: diphenhydrAMINE Capsule 25 MG CAP PO PRN (12:00)
[2023-10-31] MEDS ORDERED: ALUMINUM/MAGNESIUM SUSP 30 ML UDC PO PRN (12:00)
[2023-10-31] MEDS ORDERED: ALBUTEROL HFA 8 GM INHALER INH PRN (12:00)
[2023-10-31] MEDS ORDERED: MAGNESIUM HYDROXIDE SUSP 30 ML UDC PO PRN (12:00)
[2023-10-31] MEDS ORDERED: ALBUT/IPRATROP 3MG/0.5MG NEB 3 ML VIAL INH PRN (12:00)
[2023-10-31] MEDS ORDERED: bisacodyL 10 MG SUPP PR PRN (12:00)
--- NOTE | 2023-10-31 12:12 | Anesthesiology Progress Note ---
Date of Service October 31, 2023 Anesthesia Post Procedure Vital Signs Vital Signs: Temp Pulse Pulse Pulse Resp BP BP 10/31/23 11:55 97.7 F 56 L 16 141/84 H 10/31/23 11:30 97.7 F 62 21 129/73 10/31/23 11:20 57 L 22 125/71 10/31/23 11:10 59 L 12 125/69 10/31/23 11:00 65 22 122/70 10/31/23 10:53 97.2 F L 85 13 99/63 L 10/31/23 07:02 98.1 F 73 20 141/91 H Pulse Ox O2 Del Method 10/31/23 11:55 94 Room Air 10/31/23 11:30 93 Room Air 10/31/23 11:20 91 Room Air 10/31/23 11:10 95 Room Air 10/31/23 11:00 92 Room Air 10/31/23 10:53 95 Room Air 10/31/23 07:02 97 Room Air Pain Intensity Left Knee: Pain Intensity: 4 Transfer of Care Handoff Completed per policy Notes Mental Status: alert / awake / arousable and participated in evaluation Patient Amnestic to Procedure: Yes Nausea / Vomiting: adequately controlled Pain: adequately controlled Airway Patency, RR, SpO2: stable & adequate BP & HR: stable & adequate Hydration State: stable & adequate Neuraxial Anesthesia: was administered and sensory block is resolving Anesthetic Complications: no major complications apparent and Pt Satisfied with anesthetic care
[2023-10-31] MEDS: SODIUM CHLORIDE 0.9% 1,000 ML IV SCH (12:34)
[2023-10-31] MEDS: KETOROLAC 30 MG/ML VIAL IV SCH (14:14)
[2023-10-31] MEDS: FLUTICASONE/VILANTEROL 100/25MCG 14 PUFFS/INHALER INH SCH (14:14)
[2023-10-31] MEDS: ONDANSETRON INJ 2 MG/ML 2 ML VIAL IV PRN (15:10)
[2023-10-31] MEDS: Scopolamine CHECK PATCH PLACEMENT SCH (15:11)
[2023-10-31] MEDS: TRANEXAMIC ACID / 0.7% NACL 1,000 MG/100 ML BAG IV SCH (16:53)
[2023-10-31] MEDS: ceFAZolin 2000MG 2,000 MG/15 ML SYR IV SCH (16:53)
[2023-10-31] MEDS: oxyCODONE HCL IR 5 MG TAB (IMMEDIATE RELEASE) PO PRN (17:44)
[2023-10-31] MEDS: HYDROmorphone INJ 0.5 MG/0.5 ML SYR IV PRN (18:26)
[2023-10-31] MEDS: LOSARTAN POTASSIUM 25 MG TAB PO ONE (19:34)
[2023-10-31] MEDS ORDERED: SENNA 8.6 MG TAB PO SCH (21:00)
[2023-10-31] MEDS: DOCUSATE SODIUM 100 MG CAP PO SCH (21:23)
[2023-10-31] MEDS: ASPIRIN 81 MG ECTAB PO SCH (21:24)
[2023-10-31] MEDS: SENNA 8.6 MG TAB PO SCH (21:24)
[2023-11-01 06:11] LABS: Hematocrit (blood only) 30.3 % (42.0-52.0); Hemoglobin 10.1 g/dl (14.0-18.0); Mean Corpuscular Hemoglobin 30.2 pg (25.0-34.0); Mean Corpuscular Hgb Conc 33.3 g/dL (32.0-36.0); Mean Corpuscular Volume 90.7 fL (80.0-100.0); Mean Platelet Volume 9.6 fL (9.4-12.4); Platelet Count 250 K/uL (130-400); RDW Coefficient of Variation 13.1 % (11.5-14.5); RDW Standard Deviation 43.6 fL (36.4-46.3); Red Blood Count 3.34 M/uL (4.70-6.10); White Blood Count 12.32 K/ul (4.8-10.8)
[2023-11-01 06:28] LABS: BUN Creatinine Ratio 18.4 (10-20); Calcium 8.6 mg/dl (8.6-10.3); Creatinine Clr Calc Pharmacy 129.5 ml/min; Est GFR (African American) 109.5 ml/min; Est GFR (Non-African American) 94.5 ml/min; Potassium 4.3 mmol/L (3.5-5.1)
[2023-11-01] MEDS: dexAMETHasone 10 MG in SYRINGE 0 ML IV SCH (08:36)
[2023-11-01] MEDS: LOSARTAN POTASSIUM 25 MG TAB PO SCH (08:37)
[2023-11-01] MEDS: MULTIVITAMIN TAB PO SCH (08:39)
--- NOTE | 2023-11-01 09:54 | Orthopedic Progress Note ---
Date of Service November 01, 2023 Assessment & Plan (1) Status post left knee replacement: Overall, he is doing quite well today with good pain control to the left knee. He will work with physical therapy later this morning to work on ambulation and range of motion exercises. He is on aspirin for DVT prophylaxis. He can be discharged home later this morning pending physical therapy evaluation. He will follow-up with Dr. Sandoval in 2 weeks for postoperative management. Subjective . Eduar was seen and evaluated at bedside this morning resting comfortably in no apparent distress. He notes that his pain is well-controlled to the left knee. He has been up and out of bed without significant issues. He has yet to work with physical therapy this morning. He denies any other concerns today. Review of Systems All systems reviewed & are unremarkable except as noted in HPI & below. Physical Exam . On physical examination of the left knee, dressings are clean, dry, and intact. His leg is out in full extension. He has active plantarflexion dorsiflexion of the left ankle. +2 DP and PT pulses. Less than 2-second capillary refill. Normal sensation. Neurovascular intact. Results & Data Results & Data Laboratory Results . Diagnostic Findings . Postoperative x-rays of the left knee show prosthesis to be anatomical alignment with no signs of fracture complication or loosening. PG Care Time/CCT Total # of Minutes Spent Total Time Spent with Patient: Total time spent is greater than 50% in coordination of care (as documented) at patient's floor/unit and/or counseling patient: Coding Level of Care Code 80320 Post Operative Follow-Up Diagnoses Status post left knee replacement Z96.652
--- NOTE | 2023-11-01 09:56 | Discharge Summary ---
Date of Service November 01, 2023 Admission HPI (Per Admitting) . Patient is a 57-year-old male who presents for follow-up and definitive treatment of his knees at this time please get a long history of bilateral knee pain discomfort describes gotten worse over time to the left knee bothers him more than the right. Has had multiple surgeries in the past including 2 knee scopes in the left and 1 on the right. He had injections which have become less successful over time. He describes global pain. The more he is up and on his knees and what they hurt. He would like to proceed with left knee replacement. Admission Exam (Per Admitting) . Physical examination reveals pleasant middle-age male. Looks in pretty good health. Examination of the left knee reveal patient ambulates independently. Good varus alignment to his knee. He is tender with medial joint line. Small knee effusion. Range of motion 5-1 25. No instability. No particular pain with hip motion. Examination of the right knee reveals a similar varus deformity. Small knee effusion. Tender over the medial joint line. Range of motion 5-1 25. Principal Diagnosis Same as "Discharge Diagnosis" noted below under Discharge Instructions. Discharge Exam . On physical examination of the left knee, dressings are clean, dry, and intact. His leg is out in full extension. He has active plantarflexion dorsiflexion of the left ankle. +2 DP and PT pulses. Less than 2-second capillary refill. Normal sensation. Neurovascular intact. Discharge Data Procedures Performed Operation Date: 10/31/23 08:50 Actual Procedures p Left Total Knee Arthroplasty(Left) - Samir Sandoval MD Ordered Studies 10/31/23 05:00 US - OR guided needle placemen Routine Hospital Course (1) Status post left knee replacement: On October 31, 2023 Eduar arrived at [facility] and underwent a left total knee arthroplasty performed by Dr. Sandoval with no complications. He had a spinal anesthetic. Postoperatively, he was started on aspirin for DVT prophylaxis and transferred to the general orthopedic floor in stable condition. His hospital course was uneventful. On postoperative day #1, his vital signs were stable and his pain was well-controlled. He participated well with physical therapy work on ambulation and range of motion exercises. He was then discharged home in stable condition. He will follow-up in [address] Sandoval for postoperative management. PG Care Time/CCT Total # of Minutes Spent Total Time Spent with Patient: Total time spent is greater than 50% in coordination of care (as documented) at patient's floor/unit and/or counseling patient: Discharge Plan Discharge Items Patient Disposition: Home - Self-Care Reason For Visit: Left Knee Degeneartive Joint Disease Discharge Diagnosis: Left Knee Replacement Activity: Per Instructions section Weightbearing: Full weightbearing Non-emergency contact: Surgeon Call non-emergency contact if: you have any medication questions Follow-up/Referrals: Ama Perdomo MD [Primary Care Provider] - Diet: Regular Addtl Attending Provider Instructions: ACTIVITY RECOMMENDATIONS: Physical Therapy: * You will go to physical therapy three times each week for four to six weeks after your surgery in order to regain your knee range of motion and to retrain your knee to work properly. * It is just as important to make sure you are getting your knee perfectly straight as it is to regain your knee bend. * Taking a pain pill an hour before therapy can help you have a more productive and comfortable therapy session. Home Exercise: * You were shown a series of exercises (heel props, heel slides, etc.) in the hospital. Do these exercises three to four times each day including the exercises you were shown in physical therapy. Walking: * Get up and walk several times each day. For the first four weeks, try not to stand or walk for more than one hour at a time. If you do stand or walk for more than one hour, you will not hurt anything, but your knee and leg will likely swell. * As you feel comfortable, you may change from the walker or crutches to a cane and then to independent walking. MEDICATIONS: New Medicine: * You will likely be taking one or more of these medications: 1. Oxycodone - A quick and shorter-acting pain medication. Take one to two tablets every six hours to lessen your pain. 2. Aspirin - Thins your blood to lessen the chance of forming a blood clot. * The most common side effects of pain medicine and iron are nausea and constipation. If nausea or constipation is too much of a problem or if you have any questions about your new medicines or doses, call [facility] at [phone]. We will try to help you manage these issues. "VERY IMPORTANT TO READ AND REVIEW" Pain: * The immediate post-operative period after knee replacement surgery is often quite painful. * You are given a prescription for pain medicine. You should take it, as directed, when you need it, especially before physical therapy and before going to bed. Pain that interferes with sleep is very common and can last several months. * You will likely need pain medicine for the first four to six weeks. It will not stop all of the pain. The pain will lessen and as you feel better, you may change to milder pain medicine such as Tylenol. * The most common side effects of pain medicine are nausea and constipation, so don't take more than you need. SPECIAL CARE INSTRUCTIONS: TEDs/Elastic Stockings: * The white elastic stockings help limit swelling and prevent blood clots from forming in your legs. The more you wear them, the more they work. * Wear them for six weeks after knee replacement surgery and four weeks after partial knee replacement. Incision Site Care: * Remove dressing postoperative day 2 and then shower. Keep direct shower pressure off the incision site. * After showering, cover mary with dry gauze and change daily or more frequently if the dressing is getting saturated with drainage. * Use the SALLY stockings to hold dressing in place. DO NOT apply tape on the skin. * May completely stop using bandage if wound is dry and no drainage * Devers are removed between 2 and 3 weeks post-op. If your follow-up appointment is made before 2 weeks, please have your appointment re- scheduled. It is too early to remove the mary. Prevention of Infection: * Take antibiotics one hour before any dental cleaning, dental work, urological procedure, gastrointestinal procedure or any invasive surgery in order to prevent your new joint from getting infected. * You may get the antibiotics from the doctor performing the procedure or you may call our office at [phone] before and we will call in a prescription to the pharmacy of your choice. Things to Watch For: * Drainage from the incision site that occurs more than one week after your surgery. * Severely increased knee/leg pain or swelling. * Increased redness at the incision site. * Fever above 102 degrees Fahrenheit. * Unusual chest pain or shortness of breath. * Unusual pain or burning with urination. Call [facility] at [phone] with any of the above problems or if you have any questions about your medicines or recovery. FOLLOW UP VISIT: Make an appointment to see your doctor for approximately two weeks after surgery for a progress check and staple removal by calling the office at [phone]. Pending Studies at Discharge: No Stand-Alone Forms: [facility], Smoking Cessation Medications and DC Order Prescriptions: Continued oxycodone 5 mg tablet 5 - 10 mg PO Q6 PRN (Reason: pain) Qty: 40 0RF Rx Instructions: Take as needed for pain ondansetron 4 mg tablet,disintegrating 4 mg PO Q8 PRN (Reason: nausea) Qty: 20 1RF Rx Instructions: Take as needed for nausea ketorolac 10 mg tablet 10 mg PO Q6 5 Days Qty: 20 0RF Rx Instructions: Take 4 times per day with food for 5 days to lessen pain and swelling. sennosides [Senokot] 8.6 mg tablet 8.6 mg PO BID 14 Days Qty: 28 0RF Rx Instructions: Take two times a day to prevent/treat constipation acetaminophen [Tylenol Extra Strength] 500 mg tablet 1,000 mg PO TID 30 Days Qty: 180 0RF Rx Instructions: Take 3 times per day to lessen pain. aspirin [Gualberto Low Dose Aspirin] 81 mg tablet,delayed release (DR/EC) 81 mg PO BID 45 Days Qty: 90 0RF Rx Instructions: Take to prevent blood clots. tamsulosin [Flomax] 0.4 mg capsule 0.4 mg PO DAILY PRN (Reason: prevent urinary retention.) Qty: 7 0RF Rx Instructions: Begin night BEFORE surgery to prevent urinary retention cefadroxil 500 mg capsule 500 mg PO BID 7 Days Qty: 14 0RF Rx Instructions: Take 1 cap twice a day to prevent infection ipratropium-albuterol 0.5 mg-3 mg(2.5 mg base)/3 mL solution for nebulization 2 ml INHALATION Q6H PRN (Reason: Wheezing) albuterol sulfate [Ventolin HFA] 90 mcg/actuation HFA aerosol inhaler 2 puff inhalation Q6H PRN (Reason: Wheezing) Flintstones with Iron 18 mg iron Tablet,Chewable 1 tab PO QAM fluticasone propion-salmeterol 500-50 mcg/dose blister with device 1 ea INHALATION BID losartan 25 mg tablet 25 mg PO QAM Discharge Orders: Discharge Order (Routine); Ordered 11/01/23 Ordered By: Justin Witt Admission Data Admit Date/Time: 10/31/23 10:55 Attending Provider: Samir Sandoval Admit Provider: Smair Sandoval Primary Care Provider: Ama Perdomo
== END 2023-11-01 11:53 | disposition home or self-care (01) ==
LOC: 3E 06:41 → ASU 06:41